=== PATIENT | male | born 1980 | race Caucasian/White ===

== ENCOUNTER 2017-01-04 10:21 | Day surgery (SDC) | payer BC ==
[~2017-01-04] VITALS: Ht 177.8 cm; Wt 155.1 kg
[~2017-01-04 10:21] MED LIST: ESSENTIAL DAIL1 EACH PO; LITE COAT ASPI325 M1 PO
[2017-01-04 11:12] VITALS: BP 133/82
[2017-01-04] MEDS ORDERED: MOTRIN600 MG PO (15:45)
[2017-01-04] MEDS ORDERED: NORCO 5/3251 TABLET PO (15:45)
[2017-01-04 16:12] VITALS: BP 132/86
[2017-01-04 17:50] VITALS: BP 123/82
== END 2017-01-04 17:50 | disposition home or self-care (01) ==
LOC: SDC 10:21
PROC: 06BY0ZC Excision of Hemorrhoidal Plexus, Open Approach (ICD-10-PCS; principal; 2017-01-04)
DX: K64.8 Other hemorrhoids (principal); E66.01 Morbid (severe) obesity due to excess calories; Z68.42 Body mass index [BMI] 45.0-49.9, adult; I80.9 Phlebitis and thrombophlebitis of unspecified site; Z79.82 Long term (current) use of aspirin; Z87.891 Personal history of nicotine dependence; Z88.2 Allergy status to sulfonamides
CPT/HCPCS: 88305; J0131; J0330; J1100; J1335; J2250; J2405; J2765; J3010; J7050; S0020